=== PATIENT | female | born 1960 | race African-American/Black ===

== ENCOUNTER 2019-03-19 08:05 | Day surgery (SDC) | payer OTHER ==
[~2019-03-19 08:05] MED LIST: CEFAZOLIN 1 GM/50 ML (PMX) 50 ML IVPB; ROCURONIUM 50 MG INJ; SOD CHLORIDE 0.9% 1,000 ML IV
[2019-03-19 08:59] LABS: ADD MAN DIFF? NO
[2019-03-19 09:11] LABS: WHITE BLOOD COUNT 3.7 10^3/ul (4.8-10.8)
[2019-03-19 09:11] LABS: BASOPHIL # 0.1 10^3/ul (0.0-0.1); BASOPHILS % 1.6 % (0.0-2.0); EOSINOPHILS # 0.2 10^3/ul (0.0-0.5); EOSINOPHILS % 5.3 % (0.0-7.0); HEMATOCRIT 41.3 % (37.0-47.0); HEMOGLOBIN 13.3 g/dl (12.0-16.0); LYMPHOCYTES # 1.9 10^3/ul (0.8-2.9); LYMPHOCYTES % 51.3 % (15.0-51.0); MEAN CORPUSCULAR HEMOGLOBIN 27.9 pg (29.0-33.0); MEAN CORPUSCULAR HGB CONC 32.2 g/dl (32.0-37.0); MEAN CORPUSCULAR VOLUME 86.8 fl (82.0-101.0); MEAN PLATELET VOLUME 9.6 fl (7.4-10.4); MONOCYTE # 0.3 10^3/ul (0.3-0.9); MONOCYTES % 9.1 % (0.0-11.0); NEUTROPHIL # 1.2 10^3/ul (1.6-7.5); NEUTROPHILS % 32.4 % (39.0-77.0); PLATELET COUNT 293 10^3/UL (140-415); RED BLOOD COUNT 4.76 10^6/ul (4.20-5.40); RED CELL DISTRIBUTION WIDTH 13.4 % (11.5-14.5)
[2019-03-19 09:26] LABS: INR 0.87; PROTIME 11.9 Sec (11.9-14.9); PT RATIO 0.9
[2019-03-19 09:27] LABS: PARTIAL THROMBOPLASTIN TIME 32.9 Sec (23.0-35.0)
[2019-03-19 09:47] LABS: ALANINE AMINOTRANSFERASE 23 IU/L (13-69); ALBUMIN 4.2 g/dl (3.3-4.9); ALBUMIN/GLOBULIN RATIO 1.13; ALKALINE PHOSPHATASE 86 IU/L (42-121); ANION GAP 7 (5-13); ASPARTATE AMINO TRANSFERASE 26 IU/L (15-46); BILIRUBIN,INDIRECT 0.5 mg/dl (0-1.1); BILIRUBIN,TOTAL 0.5 mg/dl (0.2-1.3); BLOOD UREA NITROGEN 15 mg/dl (7-20); CALCIUM 9.9 mg/dl (8.4-10.2); CARBON DIOXIDE 30 mmol/L (21-31); CHLORIDE 104 mmol/L (97-110); CREATININE 0.94 mg/dl (0.44-1.00); Estimated GFR > 60 mL/min (>60); GLUCOSE 81 mg/dl (70-220); POTASSIUM 4.1 mmol/L (3.5-5.1); SODIUM 141 mmol/L (135-144); TOTAL PROTEIN 7.9 g/dl (6.1-8.1)
[2019-03-19] MEDS ORDERED: PROPOFOL 100 ML (10:42)
[2019-03-19] MEDS ORDERED: LIDOCAINE 2% (SDV) 5 ML INJ (10:57)
[2019-03-19] MEDS ORDERED: CEFAZOLIN 1 GM INJ (11:10)
[2019-03-19] MEDS ORDERED: DEXAMETHASONE 4 MG/ML 5 ML INJ (11:12)
[2019-03-19] MEDS ORDERED: ONDANSETRON 4 MG INJ (11:13)
[2019-03-19] MEDS: BUPIVACAINE 0.5%/EPI (SDV) 30 ML INJ (11:24)
[2019-03-19] MEDS ORDERED: GLYCOPYRROLATE 0.4 MG INJ (11:41)
[2019-03-19] MEDS ORDERED: NEOSTIGMINE 3 MG/3 ML SYRINGE (11:41)
[2019-03-19] MEDS ORDERED: EPHEDrine 25 MG/5 ML SYG IV (12:00)
[2019-03-19] MEDS ORDERED: MEPERIDINE 25 MG INJ IV (12:00)
[2019-03-19] MEDS ORDERED: ALBUTEROL 0.083% (NEB) 2.5 MG/3 ML AMP HHN (12:00)
[2019-03-19] MEDS ORDERED: KETOROLAC 30 MG INJ IV (12:00)
[2019-03-19] MEDS ORDERED: ONDANSETRON 4 MG INJ IV (12:00)
[2019-03-19] MEDS ORDERED: DIPHENHYDRAMINE 50 MG INJ IV (12:00)
[2019-03-19] MEDS ORDERED: FENTAnyl 50 MCG/ML VIAL IV ×3 (12:00)
[2019-03-19] MEDS ORDERED: LABETALOL HCL 20MG INJ IV (12:00)
[2019-03-19] MEDS ORDERED: METOCLOPRAMIDE 10 MG INJ IV (12:00)
[2019-03-19] MEDS ORDERED: hydrALAzine 20 MG INJ IV (12:00)
== END 2019-03-19 13:22 | disposition home or self-care (01) ==
LOC: SDS 08:05
DX: K64.4 Residual hemorrhoidal skin tags (principal); I47.1 Supraventricular tachycardia
CPT/HCPCS: 46250; 80053; 85025; 85610; 85730; 88305; 93005